=== PATIENT | male | born 1985 | race Hispanic/Latino ===

== ENCOUNTER 2018-05-24 21:23 | Emergency (ER) | payer OTHER ==
[2018-05-24 22:16] VITALS: BP 132/87; PULSE 102; RESP 16; TEMP 98.1; O2SAT 97
[2018-05-24] MEDS ORDERED: Tdap Vaccine 0.5 ml Vial (10-64 yrs) IM ONE ×2 (22:35→22:47)
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
== END 2018-05-24 23:19 | disposition home or self-care (01) ==
LOC: C.ER 21:23
DX: S01.01XA Laceration without foreign body of scalp, initial encounter (principal); W01.0XXA Fall on same level from slipping, tripping and stumbling without subsequent striking against object, initial encounter; Y92.9 Unspecified place or not applicable; Z23 Encounter for immunization

== ENCOUNTER 2018-10-10 14:14 | Inpatient (IN) | payer OTHER ==
[2018-10-10 15:26] LABS: BASO % 0.4 % (0.0-2.0); EOS # 0.2 K/uL (0.0-0.7); EOS % 3.1 % (0.0-4.0); HEMOGLOBIN 17.8 g/dL (12.0-18.0); LYMPH # 1.4 K/uL (1.0-4.3); MEAN CELL VOLUME 102.9 fL (80.0-94.0); MEAN CORPUSCULAR HEMOGLOBIN 35.8 pg (27.0-31.0); MEAN CORPUSCULAR HGB CONC 34.8 g/dL (33.0-37.0); MEAN PLATELET VOLUME 7.8 fL (7.2-11.7); MONO # 0.5 K/uL (0.0-0.8); MONO % 7.2 % (0.0-10.0); NEUT # 5.3 K/uL (1.8-7.0); NEUT % 70.3 % (50.0-75.0); RBC 4.97 Mil/uL (4.40-5.90); RED CELL DISTRIBUTION WIDTH 13.7 % (11.5-14.5); WHITE BLOOD COUNT 7.5 K/uL (4.8-10.8)
[2018-10-10 15:36] LABS: URINE BILIRUBIN NEGATIVE (NEGATIVE); URINE BLOOD NEGATIVE (NEGATIVE); URINE CLARITY Clear (Clear); URINE COLOR Straw (YELLOW); URINE GLUCOSE (UA) NORMAL (Normal); URINE LEUKOCYTE ESTERASE NEG Leu/uL (Negative); URINE PROTEIN NEGATIVE (NEGATIVE); URINE UROBILINOGEN NORMAL mg/dL (0.2-1.0)
[2018-10-10 15:39] LABS: ALB/GLOB RATIO 1.4 (1.0-2.1); ALBUMIN 4.7 g/dL (3.5-5.0); ALT/SGPT 63 U/L (21-72); AST/SGOT 61 U/L (17-59); BLOOD UREA NITROGEN 7 mg/dL (9-20); GFR NON-AFRICAN AMERICAN > 60
[2018-10-10 15:40] LABS: BARBITURATES, UR NEGATIVE (NEGATIVE); OPIATES, UR NEGATIVE (NEGATIVE); PHENCYCLIDINE, UR NEGATIVE (NEGATIVE)
[2018-10-10 15:56] LABS: BENZODIAZEPINES, UR NEGATIVE (NEGATIVE)
--- NOTE | 2018-10-10 17:34 | C.PDOC ---
History Of Present Illness 33 y/o male presents to ED with c/o depression and suicidal ideation with plan of jumping in front of a car. Patient admits to drinking ETOH today and denies HI, hallucinations, other substance abuse or any other complaints at this time. Chief Complaint (Nursing): Psychiatric Evaluation History Per: Patient History/Exam Limitations: no limitations Onset/Duration Of Symptoms: Days Current Symptoms Are (Timing): Still Present Suicide/Self Injury Attempted (Context): None Modifying Factor(s): Alcohol Associated Symptoms: Depression, Suicidal Thoughts, Suicidal Plan Past Medical History Reviewed: Historical Data, Nursing Documentation, Vital Signs Vital Signs: Last Vital Signs Temp 97.7 F 10/10/18 14:35 Pulse 97 H 10/10/18 14:35 Resp 20 10/10/18 14:35 BP 122/88 10/10/18 14:35 Pulse Ox 98 10/10/18 14:35 - Medical History PMH: No Chronic Diseases Surgical History: No Surg Hx Family History: States: No Known Family Hx - Social History Hx Alcohol Use: Yes Hx Substance Use: No - Immunization History Hx Tetanus Toxoid Vaccination: No Hx Influenza Vaccination: No Hx Pneumococcal Vaccination: No Review Of Systems Cardiovascular: Negative for: Chest Pain Respiratory: Negative for: Cough, Shortness of Breath Gastrointestinal: Negative for: Nausea, Vomiting Skin: Negative for: Rash Psych: Positive for: Depression, Suicidal ideation. Negative for: Withdrawal Physical Exam - Physical Exam Appears: Non-toxic, No Acute Distress Skin: Warm, Dry, No Rash Head: Atraumatic, Normacephalic Eye(s): bilateral: Normal Inspection Oral Mucosa: Moist Neck: Supple Cardiovascular: Rhythm Regular Respiratory: Normal Breath Sounds, No Rales, No Rhonchi, No Wheezing Gastrointestinal/Abdominal: Normal Exam, Soft, No Tenderness, No Guarding, No Rebound Back: No CVA Tenderness Neurological/Psych: Oriented x3, Normal Speech, Normal Cognition ED Course And Treatment - Laboratory Results Result Diagrams: 10/10/18 15:20 10/10/18 15:20 O2 Sat by Pulse Oximetry: 98 (RA ) Pulse Ox Interpretation: Normal Medical Decision Making Medical Decision Making: Alissa Root All medical record entries made by the Scribe were at my direction and personally dictated by me. I have reviewed the chart and agree that the record accurately reflects my personal performance of the history, physical exam, medical decision making, and the department course for this patient. I have also personally directed, reviewed, and agree with the discharge instructions and disposition. Disposition - Disposition Disposition: HOSPITALIZED Disposition Time: 16:00 Condition: STABLE - Clinical Impression Clinical Impression: MDD (major depressive disorder) - Scribe Statement The provider has reviewed the documentation as recorded by the Alekseyibosman Root All medical record entries made by the Alekseyibosman were at my direction and personally dictated by me. I have reviewed the chart and agree that the record accurately reflects my personal performance of the history, physical exam, medical decision making, and the department course for this patient. I have also personally directed, reviewed, and agree with the discharge instructions and disposition.
--- NOTE | 2018-10-10 19:41 | PCM.BM ---
<Michael Lema - Last Filed: 10/10/18 19:38> Treatment Plan Problems - Problems identified on initial assessmt Depression Date Initiated: 10/10/18 Time Initiated: 19:39 Assessment reference: NA Status: Active Suicidal Ideation Date Initiated: 10/10/18 Time Initiated: 19:39 Assessment reference: NA Status: Active Treatment assets and liabiliti Patient Assests: adapts well, cooperative, educated, self-reliant, ADL independent, negotiates basic needs, financial stabiity Patient Liabilities: live alone (Lives alone with roommates), substance abuse (Alcohol abuse), other (Suicidal behavior) - Milieu Protocol Maintain good personal hygiene: daily Encourage regular showers, daily Remind patient to perform daily oral care, every shift Assist patient to perform ADL's Conduct patient checks and document Observation sheet: Q15 minutes (For safety) Maintain personal safety: every shift Educate patient to report safety concerns to staff, every shift Monitor environment for contraband/sharps Medication safety: Monitor for expected outcome, potential side effects: every shift, Assess barriers to learning: every shift, Assess readiness for medication education: every shift <Azalia Bustos - Last Filed: 10/11/18 11:23> - Diagnosis (1) Bipolar 1 disorder, depressed, severe Status: Acute Interventions: 10/11/18 11:24 * Assess/adjust medications daily and /or as needed * See patient on an individual basis 7x/week to assess level of manic behaviors and stability * Discuss risks, benefits, side effects and alternatives of medications * (2) Alcohol dependence Status: Acute Interventions: 10/11/18 11:24 * Assess 7x/week regarding severity of withdrawal * Educate regarding risks, benefits, side effects and alternatives of medication s * Use Motivational Interviewing for abstinence * Use CBT for relapse prevention * Medication management for withdrawal symptoms * Encourage medication assisted treatment * <Talisha Prado - Last Filed: 10/11/18 12:40> Family Contact Family involvement: Famlorraine/SO not involved - Goals for Treatment Patient goals for treatment: "I need a therapist." Discharge/Continuing Care - Education Needs Education Needs: Patient Medication, Patient Coping Skills - Discharge Discharge Criteria: Tolerates medication w/o severe side effects, Free of Suicidal thoughts, Reduction of target symptoms Discharge to:: Home - Treatment Team Participation Discussed with Family/SO: No Was Patient/Family/SO present at Treatment Team Meeting: Yes
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
[2018-10-11] MEDS: Multiple Vitamins Tab PO SCH (11:18)
[2018-10-12] MEDS ORDERED: Influenza Vaccine 60 MCG/0.5 ML SYR (3 yr & up) IM ONE (10:00)
[2018-10-12] MEDS: Multiple Vitamins Tab PO SCH (10:47)
[2018-10-12] MEDS: Pneumococcal 23-Valent Vaccine IM ONE ×2 (11:15→11:24)
[2018-10-13] MEDS: Multiple Vitamins Tab PO SCH (10:01)
--- NOTE | 2018-10-14 08:20 | PCM.PYCHPN ---
Psychiatric Progress Note - Psychiatric Progress Note Patient seen today, length of contact: 15 min Patient Chief Complaint: I m feeling depressed.' Problems Identified/Issues Discussed: Patient was seen and evaluated, chart reviewed and discussed with the staff. Patient still reports depressed mood and reports at times feelings of hopelessness and helplessness. He still reports at times irritability, agitation and racing thoughts. He is taking medication but denies any side effects. He denies any auditory hallucination and paranoia. Symptoms are improving gradually and he needs to stay longer for further stabilization Supportive therapy was given Medication Change: Yes Medical Record Reviewed: Yes Mental Status Examination - Cognitive Function Orientation: Person, Place, Situation, Time Memory: Intact Attention: WNL Concentration: Poor Association: WNL Fund of Knowledge: Poor - Mood Mood: Depressed, Anxious - Affect Affect: Constricted, Depressed - Formal Thought Process Formal Thought Process: No Impairment - Suicidal Ideation Suicidal Ideation: No - Homicidal Ideation Homicidal Ideation: No Goal/Treatment Plan - Goal/Treatment Plan Need for Continued Stay: Discharge may exacerbated symptoms Progress Toward Problem(s) and Goals/Treatment Plan: Bipolar disorder with severe without psychotic features Alcohol use disorder severe CBT Psychoeducation Supportive therapy, group therapy and milieu therapy [place] 300 mg p.o. 3 times daily Neurontin 300 mg p.o. 3 times daily Remeron 15 mg p.o. nightly Trazodone 50 mg p.o. nightly Librium as needed for withdrawal symptoms PRN medications
[2018-10-14] MEDS: Multiple Vitamins Tab PO SCH (09:43)
[2018-10-15] MEDS: Multiple Vitamins Tab PO SCH (10:11)
[2018-10-15 21:25] LABS: RAPID PLASMA REAGIN REACTIVE (NONREACTIVE)
[2018-10-16 08:09] LABS: HEPATITIS B SURFACE AG Negative (NEGATIVE)
[2018-10-16 08:14] LABS: HEPATITIS A IGM NEGATIVE (NEGATIVE); HEPATITIS B CORE AB NEGATIVE (NEGATIVE)
[2018-10-16 08:25] LABS: HEPATITIS C ANTIBODY NEGATIVE (NEGATIVE)
[2018-10-16] MEDS: Multiple Vitamins Tab PO SCH (09:07)
[2018-10-17 06:21] VITALS: BP 114/75; PULSE 80; RESP 20; TEMP 97.6; O2SAT 97
[2018-10-17] MEDS: Multiple Vitamins Tab PO SCH (09:38)
[2018-10-17] MEDS ORDERED: Lithium Carbonate ER Tab 450 MG PO SCH (10:00)
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
[2018-10-17] MEDS ORDERED: Penicillin G Benzathine 2.4 Mill Unit/4 ml Syr IM ONE (11:25)
== END 2018-10-17 12:00 | disposition home or self-care (01) | DRG 885 ==
LOC: C.ER 14:14 → C.5E 16:56
PROC: GZHZZZZ Group Psychotherapy (ICD-10-PCS; principal; 2018-10-10)
PROC: GZ56ZZZ Individual Psychotherapy, Supportive (ICD-10-PCS; 2018-10-10)
DX: F31.4 Bipolar disorder, current episode depressed, severe, without psychotic features (principal); R45.851 Suicidal ideations; Z91.410 Personal history of adult physical and sexual abuse; F10.20 Alcohol dependence, uncomplicated; Y90.8 Blood alcohol level of 240 mg/100 ml or more